=== PATIENT | female | born 1960 | race Caucasian/White ===

== ENCOUNTER 2017-01-07 18:00 | Emergency (ER) | payer BC ==
[2017-01-07] MEDS ORDERED: LORazepam 2 MG/ML SDV IVPUSH ONE (18:20)
--- NOTE | 2017-01-07 18:42 | EDM.PDOC ---
ED HPI GENERAL MEDICAL PROBLEM - General Chief Complaint: General Stated Complaint: irregular heart rate Time Seen by Provider: 01/07/17 18:19 Source of Information: Reports: Patient History Limitations: Reports: No Limitations - History of Present Illness INITIAL COMMENTS - FREE TEXT/NARRATIVE: PT STATES THIS AM SHE DEVELOPED PALPITATIONS AND ANXIETY WHICH PROGRESSIVELY WORSENED THROUGHOUT THE DAY. HAS HAD SIMILAR SYMPTOMS IN PAST AND CARDIAC WORKUP WAS NEGATIVE. CURRENTLY ON DIGOXIN FOR IRREGULAR RATE AND LEXAPRO FOR ANXIETY. DENIES SOB, CP, N/V, ABD PAIN, OR FEVER. Onset Date: 01/07/17 Duration: Hour(s): Location: Reports: Chest Quality: Reports: Other (DENIES PAIN) Severity: Mild Improves with: Reports: None Worsens with: Reports: None Associated Symptoms: Reports: No Other Symptoms - Related Data Allergies Allergy/AdvReac Type Severity Reaction Status Date / Time codeine Allergy Nausea and Verified 01/07/17 18:18 Vomiting ED ROS GENERAL - Review of Systems Review Of Systems: ROS reveals no pertinent complaints other than HPI. Constitutional: Reports: No Symptoms HEENT: Reports: No Symptoms Respiratory: Reports: No Symptoms Cardiovascular: Reports: Palpitations Endocrine: Reports: No Symptoms GI/Abdominal: Reports: No Symptoms : Reports: No Symptoms Musculoskeletal: Reports: No Symptoms Skin: Reports: No Symptoms Neurological: Reports: No Symptoms Psychiatric: Reports: Anxiety Hematologic/Lymphatic: Reports: No Symptoms Immunologic: Reports: No Symptoms ED EXAM, GENERAL - Physical Exam Exam: See Below Exam Limited By: No Limitations General Appearance: Alert, WD/WN, Anxious Eye Exam: Bilateral Eye: Normal Inspection Nose: Normal Inspection, No Blood Throat/Mouth: Normal Inspection, Normal Oropharynx, No Airway Compromise Head: Atraumatic, Normocephalic Neck: Normal Inspection, Supple Respiratory/Chest: No Respiratory Distress, Lungs Clear, Normal Breath Sounds, No Accessory Muscle Use, Chest Non-Tender Cardiovascular: Regular Rate, Rhythm, No Murmur GI/Abdominal: Normal Bowel Sounds, Soft, Non-Tender Back Exam: Normal Inspection. No: CVA Tenderness (L), CVA Tenderness (R) Extremities: Normal Inspection, No Pedal Edema Neurological: Alert, Oriented, CN II-XII Intact, Normal Cognition Psychiatric: Normal Affect, Anxious. No: Depressed Mood, Flat Affect, Tearful Skin Exam: Warm, Dry, Intact, Normal Color, No Rash EKG INTERPRETATION EKG Date: 01/07/17 Time: 19:05 Rhythm: NSR Rate (Beats/Min): 85 [place]: Normal P-Wave: Present QRS: Normal ST-T: Normal QT: Normal Course - Vital Signs Last Recorded V/S: Last Vital Signs Temp 97.6 F 01/07/17 18:10 Pulse 109 H 01/07/17 18:10 Resp 14 01/07/17 18:10 BP 156/68 H 01/07/17 18:10 Pulse Ox 98 01/07/17 18:10 - Orders/Labs/Meds Orders: Active Orders 24 hr Category Date Time Status EKG Documentation Completion [RC] ASDIRECTED Care 01/07/17 18:23 Ordered COMPREHENSIVE METABOLIC PN,CMP [CHEM] Stat Lab 01/07/17 18:20 Ordered DIGOXIN [CHEM] Stat Lab 01/07/17 18:21 Ordered EKG 12 Lead [EK] Routine Ther 01/07/17 18:21 Ordered Labs: Laboratory Tests 01/07/17 Range/Units 18:18 WBC 6.8 (5.0-10.0) 10^3/uL RBC 5.05 (3.80-5.50) 10^6/uL Hgb 14.8 (12.0-16.0) g/dL Hct 46.6 (37.0-47.0) % MCV 92.3 H (82.0-92.0) fL MCH 29.3 (27.0-31.0) pg MCHC 31.7 L (32.0-36.0) g/dL RDW 11.7 (11.5-14.5) % Plt Count 279 (150-300) 10^3/uL MPV 7.4 (7.4-10.4) fL Neut % (Auto) 63.1 (50.0-70.0) % Lymph % (Auto) 28.0 (20.0-40.0) % [place] % (Auto) 5.1 (2.0-8.0) % Eos % (Auto) 2.1 (1.0-3.0) % Baso % (Auto) 1.7 H (0.0-1.0) % Neut # (Auto) 4.4 (2.5-7.0) 10^3/uL Lymph # (Auto) 1.9 (1.0-4.0) 10^3/uL [place] # (Auto) 0.3 (0.1-0.8) 10^3/uL Eos # (Auto) 0.1 (0.1-0.3) 10^3/uL Baso # (Auto) 0.1 (0.0-0.1) 10^3/uL Meds: Medications Discontinued Medications Generic Name Dose Route Start Last Admin Trade Name Seng PRN Reason Stop Dose Admin Lorazepam 1 mg 01/07/17 18:20 01/07/17 18:32 Ativan IVPUSH 01/07/17 18:21 1 mg ONETIME ONE Administration - Re-Assessments/Exams Free Text/Narrative Re-Assessment/Exam: 01/07/17 19:09 PT AFEBRILE, NONTOXIC APPEARING, VSS, DAUGHTER AT BEDSIDE. FEELS MUCH BETTER AFTER TAKING ATIVAN. DENIES CP, SOB, OR PALPITATIONS AT THIS TIME 01/07/17 19:14 Departure - Departure Time of Disposition: 19:14 Disposition: Home, Self-Care 01 Condition: Good Clinical Impression: Anxiety, Palpitation - Discharge Information Instructions: Panic Attacks, [id number], Palpitations Additional Instructions: FOLLOW UP WITH DR PASTRANA TOMORROW. TAKE ATIVAN 0.5 MG FOR ANXIETY BREAKTHROUGH - My Orders Last 24 Hours: My Active Orders 01/07/17 18:20 COMPREHENSIVE METABOLIC PN,CMP [CHEM] Stat 01/07/17 18:21 DIGOXIN [CHEM] Stat EKG 12 Lead [EK] Routine 01/07/17 18:23 EKG Documentation Completion [RC] ASDIRECTED - Assessment/Plan Last 24 Hours: My Active Orders 01/07/17 18:20 COMPREHENSIVE METABOLIC PN,CMP [CHEM] Stat 01/07/17 18:21 DIGOXIN [CHEM] Stat EKG 12 Lead [EK] Routine 01/07/17 18:23 EKG Documentation Completion [RC] ASDIRECTED Assessment:: ANXIETY Plan: F/U AT CLINIC
[2017-01-07] MEDS ORDERED: LORazepam 0.5 MG Tab PO ONE (19:10)
[2017-01-07] MEDS ORDERED: LORazepam 0.5 MG Tab ONE (19:13)
== END 2017-01-07 19:30 | disposition home or self-care (01) ==
LOC: KA.ED 18:00
DX: F41.9 Anxiety disorder, unspecified (principal); Z88.5 Allergy status to narcotic agent
CPT/HCPCS: 36415; 80053; 80162; 85025; 99283; A9270; J2060; 93005; 96374

== ENCOUNTER 2020-12-30 10:02 | Observation (INO) | payer BC ==
[2020-12-30] MEDS ORDERED: Sodium Chloride 0.9% 10 ML Syringe FLUSH PRN (10:11)
--- NOTE | 2020-12-30 10:34 | EDM.PDOC ---
ED HPI GENERAL MEDICAL PROBLEM - General Chief Complaint: Chest Pain Stated Complaint: PANIC ATTACK/CHEST PAIN Time Seen by Provider: 12/30/20 10:15 Source of Information: Reports: Patient History Limitations: Reports: No Limitations - History of Present Illness INITIAL COMMENTS - FREE TEXT/NARRATIVE: 60 YO WF PRESENTS TO ER COMPLAINING OF PALPITATIONS AND ANXIETY WITH SUBSTERNAL CHEST PAIN WHICH PROGRESSIVELY WORSENED THROUGHOUT THE MORNING TODAY. PT HAS HAD SIMILAR SYMPTOMS IN PAST AND MULTIPLE CARDIAC WORKUPS WHICH WERE ALL NEGATIVE. PT SHAKY AND TEARFUL AND ANXIOUS ON EXAM. PT CURRENTLY TAKING DIGOXIN FOR SUSPECTED IRREGULAR HEART RATE. DENIES SOB, N/V, ABD PAIN, OR FEVER/CHILLS. PT DENIES COUGH/CONGESTION OR KNOWN COVID EXPOSURES. Onset: Today Duration: Getting Worse Location: Reports: Chest Quality: Reports: Pressure Severity: Mild Improves with: Reports: None Worsens with: Reports: None Associated Symptoms: Reports: Chest Pain Chest Pain Pain Score (Numeric/FACES): 5 - Related Data Allergies Allergy/AdvReac Type Severity Reaction Status Date / Time codeine Allergy Nausea and Verified 12/30/20 10:06 Vomiting Home Meds: Home Meds ALPRAZolam [Alprazolam ER] 0.5 mg PO BID 01/07/17 [History] ALPRAZolam [Xanax] 0.5 mg PO DAILY PRN 01/07/17 [History] Aspirin [Ecotrin] 325 mg PO DAILY 01/07/17 [History] Cholecalciferol (Vitamin D3) [Vitamin D3] 2,000 unit PO BID 01/07/17 [History] Cyanocobalamin (Vitamin B-12) [B-12] 500 mcg PO BEDTIME 01/07/17 [History] Digoxin 62.5 mcg PO DAILY 01/07/17 [History] Escitalopram [Lexapro] 5 mg PO DAILY 01/07/17 [History] Furosemide 20 mg PO DAILY PRN 01/07/17 [History] Multivitamin with Minerals [Hair, Skin & Nails] 1 each PO DAILY 01/07/17 [History] [place]-3/DHA/Epa/Fish Oil [Fish Oil 1,000 mg Softgel] 1,000 mg PO DAILY 01/07/17 [History] Omeprazole 20 mg PO BEDTIME 01/07/17 [History] Simvastatin [Zocor] 10 mg PO BEDTIME 01/07/17 [History] Acetaminophen [Tylenol Extra Strength] 500 mg PO Q6HR PRN 12/30/20 [History] Social & Family History - Tobacco Use Tobacco Use Status *Q: Never Tobacco User Second Hand Smoke Exposure: No - Caffeine Use Caffeine Use: Reports: Coffee, Soda - Recreational Drug Use Recreational Drug Use: No ED ROS GENERAL - Review of Systems Review Of Systems: See Below Constitutional: Reports: No Symptoms HEENT: Reports: No Symptoms Respiratory: Reports: No Symptoms Cardiovascular: Reports: Chest Pain, Palpitations Endocrine: Reports: No Symptoms GI/Abdominal: Reports: No Symptoms : Reports: No Symptoms Musculoskeletal: Reports: No Symptoms Skin: Reports: No Symptoms Neurological: Reports: No Symptoms Psychiatric: Reports: Anxiety Hematologic/Lymphatic: Reports: No Symptoms Immunologic: Reports: No Symptoms ED EXAM, GENERAL - Physical Exam Exam: See Below Exam Limited By: No Limitations General Appearance: Alert, WD/WN, Anxious, Mild Distress Neck: Normal Inspection, Supple, Non-Tender, Full Range of Motion Respiratory/Chest: No Respiratory Distress, Lungs Clear, Normal Breath Sounds, No Accessory Muscle Use, Chest Non-Tender Cardiovascular: Normal Peripheral Pulses, Regular Rate, Rhythm, No Edema, No Gallop, No JVD, No Murmur, No Rub, Tachycardia GI/Abdominal: Normal Bowel Sounds, Soft, Non-Tender, No Organomegaly, No Distention, No Abnormal Bruit, No Mass Back Exam: Normal Inspection, Full Range of Motion, NT Extremities: Normal Inspection, Normal Range of Motion, Non-Tender, Normal Capillary Refill, No Pedal Edema Neurological: Alert, Oriented, CN II-XII Intact, Normal Cognition, Normal Gait, No Motor/Sensory Deficits Psychiatric: Anxious Skin Exam: Warm, Dry, Intact, Normal Color, No Rash Lymphatic: No Adenopathy #1 Interpretation EKG Date: 12/30/20 Time: 10:27 Rhythm: NSR Rate (Beats/Min): 103 [place]: Normal P-Wave: Present QRS: Normal ST-T: Normal QT: Normal Comparison: No Change Course - Vital Signs Last Recorded V/S: Last Vital Signs Temp 97.6 F 12/30/20 10:22 Pulse 94 12/30/20 11:20 Resp 18 12/30/20 11:20 BP 130/73 12/30/20 11:20 Pulse Ox 93 L 12/30/20 11:20 - Orders/Labs/Meds Orders: Active Orders 24 hr Category Date Time Status Cardiac Monitoring [RC] . DIRECTED Care 12/30/20 10:11 Active Peripheral IV Care [RC] . DIRECTED Care 12/30/20 10:11 Active CORONAVIRUS COVID-19 RAPID [MOLEC] Stat Lab 12/30/20 11:29 Ordered Sodium Chloride 0.9% [Saline Flush] Med 12/30/20 10:11 Active 10 ml FLUSH Q8HR PRN Peripheral IV Insertion Adult [OM.PC] Routine Oth 12/30/20 10:11 Ordered EKG 12 Lead [EK] Stat Ther 12/30/20 10:09 Ordered Medication Orders Sodium Chloride (Sodium Chloride 0.9% 10 Ml Syringe) 10 ml FLUSH Q8HR PRN PRN Reason: keep vein open Labs: Laboratory Tests 12/30/20 12/30/20 Range/Units 10:22 10:22 WBC 5.92 (5.00-10.00) 10^3/uL RBC 4.77 (3.80-5.50) 10^6/uL Hgb 14.4 (12.0-16.0) g/dL Hct 42.2 (37.0-47.0) % MCV 88.5 (82.0-92.0) fL MCH 30.2 (27.0-31.0) pg MCHC 34.1 (32.0-36.0) g/dL RDW 11.9 (11.5-14.5) % Plt Count 258 (150-400) 10^3/uL MPV 9.0 (7.4-10.4) fL Immature Gran % (Auto) 0.2 (0.0-5.0) % Neut % (Auto) 41.6 L (50.0-70.0) % Lymph % (Auto) 50.2 H (20.0-40.0) % [place] % (Auto) 5.6 (2.0-8.0) % Eos % (Auto) 1.9 (1.0-3.0) % Baso % (Auto) 0.5 (0.0-1.0) % Neut # (Auto) 2.47 L (2.50-7.00) 10^3/uL Lymph # (Auto) 2.97 (1.00-4.00) 10^3/uL [place] # (Auto) 0.33 (0.10-0.80) 10^3/uL Eos # (Auto) 0.11 (0.10-0.30) 10^3/uL Baso # (Auto) 0.03 (0.00-0.10) 10^3/uL Immature Gran # (Auto) 0.01 (0.00-0.50) 10^3/uL Sodium 143 (136-145) mmol/L Potassium 3.8 (3.5-5.1) mmol/L Chloride 104 (98-107) mmol/L Carbon Dioxide 20.4 L (21.0-32.0) mmol/L Anion Gap 22.4 H (5-15) mmol/L BUN 16 (7-18) mg/dL Creatinine 0.87 (0.51-1.17) mg/dL Est Cr Clr Drug Dosing 60.33 mL/min Estimated GFR (MDRD) > 60 mL/min Glucose 149 H (70-140) mg/dL Calcium 9.6 (8.7-10.3) mg/dL Troponin I High Sens 4.500 (0-51.000) pg/mL Meds: Medications Generic Name Dose Route Start Last Admin Trade Name Freq PRN Reason Stop Dose Admin Sodium Chloride 10 ml 12/30/20 10:11 Sodium Chloride 0.9% 10 Ml Syringe FLUSH Q8HR PRN keep vein open Discontinued Medications Generic Name Dose Route Start Last Admin Trade Name Freq PRN Reason Stop Dose Admin Aspirin 324 mg 12/30/20 11:36 Aspirin 81 Mg Tab.Chew PO 12/30/20 11:37 ONETIME ONE Lorazepam 1 mg 12/30/20 10:46 12/30/20 10:50 Lorazepam 2 Mg/Ml Sdv IVPUSH 12/30/20 10:47 1 mg ONETIME ONE Administration Nitroglycerin 1 gm 12/30/20 11:15 12/30/20 11:20 Nitroglycerin 2% Oint 1 Gm Ud Packet TOP 12/30/20 11:16 1 gm ONETIME ONE Administration - Radiology Interpretation Free Text/Narrative:: CXR- NO ACUTE PROCESS Departure - Departure Time of Disposition: 12:03 Disposition: Refer to Observation Condition: Fair Clinical Impression: Anxiety, Palpitation Chest pain Qualifiers: Chest pain type: unspecified Qualified Code(s): R07.9 - Chest pain, unspecified Referrals: Sally Hernandez MD [Primary Care Provider] - Forms: ED Department Discharge Sepsis Event Note (ED) - Evaluation Sepsis Screening Result: No Definite Risk - Focused Exam Vital Signs: Vital Signs Temp Pulse Resp BP Pulse Ox 12/30/20 11:20 94 18 130/73 93 L 12/30/20 10:22 97.6 F 113 H 12 165/84 H 99 - My Orders Last 24 Hours: My Active Orders 12/30/20 10:09 EKG 12 Lead [EK] Stat 12/30/20 10:11 Cardiac Monitoring [RC] . DIRECTED Peripheral IV Care [RC] . DIRECTED Sodium Chloride 0.9% [Saline Flush] 10 ml FLUSH Q8HR PRN Peripheral IV Insertion Adult [OM.PC] Routine 12/30/20 11:29 CORONAVIRUS COVID-19 RAPID [MOLEC] Stat - Assessment/Plan Admission H&P: Please use this note as an admission H&P Last 24 Hours: My Active Orders 12/30/20 10:09 EKG 12 Lead [EK] Stat 12/30/20 10:11 Cardiac Monitoring [RC] . DIRECTED Peripheral IV Care [RC] . DIRECTED Sodium Chloride 0.9% [Saline Flush] 10 ml FLUSH Q8HR PRN Peripheral IV Insertion Adult [OM.PC] Routine 12/30/20 11:29 CORONAVIRUS COVID-19 RAPID [MOLEC] Stat Assessment:: 1. CHEST PAIN 2. PALPITATIONS 3. ANXIETY Plan: 1. ADMIT FOR OBSERVATION AND CARDIAC MONITORING- DR PASTRANA ACCEPTING @ 1357 2. ASA/NITRO 3. SUPPORTIVE CARE 4. ATIVAN 1MG IV Q6 PRN ANXIETY
[2020-12-30] MEDS ORDERED: LORazepam 2 MG/ML SDV IVPUSH ONE (10:46)
--- NOTE | 2020-12-30 10:56 | CR ---
[id number] RAD/RAD Chest PA And Lateral EXAM: RAD Chest PA And Lateral INDICATION: Palpitations and anxiety. COMPARISON: None. DISCUSSION: Hypoinflation with central vascular crowding and basilar atelectasis. The volume loss could obscure other findings. No definite infiltrates. Normal heart size. No effusions. Mild pectus excavatum. IMPRESSION: 1. Low lung volumes. Ham Poon MD 12/30/20 1055 Thank you for allowing us to participate in the care of your patient.
[2020-12-30] MEDS ORDERED: Nitroglycerin 2% Oint 1 GM UD Packet TOP ONE (11:15)
[2020-12-30] MEDS ORDERED: Aspirin 81 MG Tab.Chew PO ONE (11:36)
[2020-12-30 11:40] LABS: ANION GAP 22.4 mmol/L (5-15); CHLORIDE,CL 104 mmol/L (98-107); SODIUM,NA 143 mmol/L (136-145)
[2020-12-30] MEDS ORDERED: LORazepam 2 MG/ML SDV IVPUSH PRN (12:10)
[2020-12-30] MEDS ORDERED: Furosemide 20 MG Tab PO PRN (12:12)
[2020-12-30] MEDS ORDERED: Acetaminophen 500 MG Tab PO PRN (12:12)
[2020-12-30] MEDS ORDERED: Alum Hydrox/Mag Hydrox/Simeth 30 ML, Lidocaine 2% 15 ML PO ONE ×2 (12:49)
[2020-12-30] MEDS ORDERED: ALPRAZolam 0.25 MG Tab PO PRN (14:14)
[2020-12-30] MEDS: Nitroglycerin 2% Oint 1 GM UD Packet TOP SCH ×2 (15:08→19:01)
[2020-12-30] MEDS: Cholecalciferol (Vitamin D3) 25 MCG Tab PO SCH (20:00)
[2020-12-30] MEDS ORDERED: Cyanocobalamin (Vitamin B12) 500 MCG Tab PO SCH (21:00)
[2020-12-30] MEDS ORDERED: Pantoprazole 40 MG Tab.CR PO SCH (21:00)
[2020-12-30] MEDS ORDERED: Simvastatin 10 MG Tab PO SCH (21:00)
[2020-12-31] MEDS: Cholecalciferol (Vitamin D3) 25 MCG Tab PO SCH (08:18)
[2020-12-31] MEDS ORDERED: Escitalopram 10 MG Tab PO SCH (09:00)
[2020-12-31] MEDS ORDERED: Digoxin 125 MCG Tab PO SCH (09:00)
[2020-12-31] MEDS ORDERED: Multivitamins with Minerals/Iron/Folic Acid/Lycopene Tab PO SCH (09:00)
[2020-12-31] MEDS ORDERED: Fish Oil/Omega-3 Fatty Acids 1 Gm Cap PO SCH (09:00)
[2020-12-31] MEDS ORDERED: Aspirin 325 MG Tab.EC PO SCH (09:00)
--- NOTE | 2020-12-31 09:38 | PCM.DCSUM1 ---
Discharge Summary - Hospital Course Free Text/Narrative:: Admission Date: 12/30/2020 Discharge Date: 12/31/2020 Disposition: Home, Self-Care Admission Diagnoses: Chest pain, rule out cardiac etiology Anxiety Attack Discharge Diagnoses: Chest pain, negative troponin x 4, negative EKG Anxiety Attack, still feeling anxious - Increase escitalopram from 10 mg PO daily to 15 mg PO daily (1-1/2 tabs), new script sent through via clinic chart to [facility] - Continue Alprazolam ER 0.5 MG PO BID - Continue Aprazolam 0.5 gm PO daily PRN (she uses 1/4 - 1/2 tab) Secondary Diagnoses: Acid Reflux - Omeprazole 20 mg PO daily HLD - Simvastatin 10 mg PO qhs LE Edema - Furosemide 20 mg PO daily PRN PAC/PVC - Digoxin 125 mcg, 1/2 tab PO daily Vit D deficiency - Vitamin D 2,000 units PO BID Med Changes - Increase escitalopram from 10 mg PO daily to 15 mg PO daily CODE STATUS: Full Code Hospital Course: Meenu is a pleasant 60 yo F with a hx of anxiety disorder and panic attack who presented to the ER on 12/30 with palpitations and substernal chest pressure. This felt different than her typical panic attacks. She had a normal EKG and troponin was negative x 4. She did have nitro paste and that helped but gave her a headache and so it was removed. She has a great deal of stress currently. Her mom who is 81 is on hospice with metastatic ovarian cancer and she had a family member who just rather unexpectedly. She is very emotional when talking about these events and understandably so. She would be interested in increasing her escitalopram from 10 mg PO daily to 15 mg PO daily and continuing on the alprazolam. She states when she took a full 1/2 tablet (0.25 mg) she felt "like I was high and I didn't like that". She is not interested in increasing the dose or frequently of that medication. She will be discharged to home on escitalopram 15 mg PO daily with follow-up in the clinic in 7-10 days. Modified Collier Scale: No Signif.Disability Despite Sympt.Able to Carry Out Usual Act./Duties Modified Yoni Scale Score: 1 - Discharge Data Discharge Date: 12/31/20 Discharge Disposition: Home, Self-Care 01 Condition: Good - Referral to Home Health Primary Care Physician: Sally Hernandez MD - Patient Instructions Diet: Regular Diet as Tolerated Activity: Rest and Relax Today - Discharge Plan *PRESCRIPTION DRUG MONITORING PROGRAM REVIEWED*: No *COPY OF PRESCRIPTION DRUG MONITORING REPORT IN PATIENT FRANCES: No Home Medications: Home Meds ALPRAZolam [Alprazolam ER] 0.5 mg PO BID 01/07/17 [History] ALPRAZolam [Xanax] 0.5 mg PO DAILY PRN 01/07/17 [History] Aspirin [Ecotrin EC] 325 mg PO DAILY 01/07/17 [History] Cholecalciferol (Vitamin D3) [Vitamin D3] 2,000 unit PO BID 01/07/17 [History] Cyanocobalamin (Vitamin B-12) [B-12] 500 mcg PO BEDTIME 01/07/17 [History] Digoxin 62.5 mcg PO DAILY 01/07/17 [History] Furosemide 20 mg PO DAILY PRN 01/07/17 [History] Multivitamin with Minerals [Hair, Skin and Nails] 1 each PO DAILY 01/07/17 [History] [place]-3/DHA/Epa/Fish Oil [Fish Oil 1,000 mg Softgel] 1,000 mg PO DAILY 01/07/17 [History] Omeprazole 20 mg PO BEDTIME 01/07/17 [History] Simvastatin [Zocor] 10 mg PO BEDTIME 01/07/17 [History] Acetaminophen [Tylenol Extra Strength] 500 mg PO Q6HR PRN 12/30/20 [History] Forms: ED Department Discharge Referrals: Sally Hernandez MD [Primary Care Provider] - - Discharge Summary/Plan Comment DC Time >30 min.: No Total # of Minutes for Discharge Time: 25 - General Info Date of Service: 12/31/20 - Patient Data Vitals - Most Recent: Last Vital Signs Temp 97.4 F 12/31/20 07:00 Pulse 93 12/31/20 09:32 Resp 16 12/31/20 07:00 BP 114/42 L 12/31/20 07:00 Pulse Ox 94 L 12/31/20 07:00 Weight - Most Recent: 180 lb I&O - Last 24 hours: Intake & Output 12/30/20 12/31/20 12/31/20 22:59 06:59 14:59 Intake Total 400 200 Balance 400 200 Lab Results - Last 24 hrs: Laboratory Results - last 24 hr 12/30/20 12/30/20 12/30/20 Range/Units 10:22 10:22 11:29 WBC 5.92 (5.00-10.00) 10^3/uL RBC 4.77 (3.80-5.50) 10^6/uL Hgb 14.4 (12.0-16.0) g/dL Hct 42.2 (37.0-47.0) % MCV 88.5 (82.0-92.0) fL MCH 30.2 (27.0-31.0) pg MCHC 34.1 (32.0-36.0) g/dL RDW 11.9 (11.5-14.5) % Plt Count 258 (150-400) 10^3/uL MPV 9.0 (7.4-10.4) fL Immature Gran % (Auto) 0.2 (0.0-5.0) % Neut % (Auto) 41.6 L (50.0-70.0) % Lymph % (Auto) 50.2 H (20.0-40.0) % [place] % (Auto) 5.6 (2.0-8.0) % Eos % (Auto) 1.9 (1.0-3.0) % Baso % (Auto) 0.5 (0.0-1.0) % Neut # (Auto) 2.47 L (2.50-7.00) 10^3/uL Lymph # (Auto) 2.97 (1.00-4.00) 10^3/uL [place] # (Auto) 0.33 (0.10-0.80) 10^3/uL Eos # (Auto) 0.11 (0.10-0.30) 10^3/uL Baso # (Auto) 0.03 (0.00-0.10) 10^3/uL Immature Gran # (Auto) 0.01 (0.00-0.50) 10^3/uL Sodium 143 (136-145) mmol/L Potassium 3.8 (3.5-5.1) mmol/L Chloride 104 (98-107) mmol/L Carbon Dioxide 20.4 L (21.0-32.0) mmol/L Anion Gap 22.4 H (5-15) mmol/L BUN 16 (7-18) mg/dL Creatinine 0.87 (0.51-1.17) mg/dL Est Cr Clr Drug Dosing 60.33 mL/min Estimated GFR (MDRD) > 60 mL/min Glucose 149 H (70-140) mg/dL Calcium 9.6 (8.7-10.3) mg/dL Magnesium (1.8-2.4) mg/dL Troponin I High Sens 4.500 (0-51.000) pg/mL SARS CoV-2 RNA Rapid DESIREE Negative (NEGATIVE) 12/30/20 12/30/20 12/31/20 Range/Units 14:05 18:00 07:35 WBC (5.00-10.00) 10^3/uL RBC (3.80-5.50) 10^6/uL Hgb (12.0-16.0) g/dL Hct (37.0-47.0) % MCV (82.0-92.0) fL MCH (27.0-31.0) pg MCHC (32.0-36.0) g/dL RDW (11.5-14.5) % Plt Count (150-400) 10^3/uL MPV (7.4-10.4) fL Immature Gran % (Auto) (0.0-5.0) % Neut % (Auto) (50.0-70.0) % Lymph % (Auto) (20.0-40.0) % [place] % (Auto) (2.0-8.0) % Eos % (Auto) (1.0-3.0) % Baso % (Auto) (0.0-1.0) % Neut # (Auto) (2.50-7.00) 10^3/uL Lymph # (Auto) (1.00-4.00) 10^3/uL [place] # (Auto) (0.10-0.80) 10^3/uL Eos # (Auto) (0.10-0.30) 10^3/uL Baso # (Auto) (0.00-0.10) 10^3/uL Immature Gran # (Auto) (0.00-0.50) 10^3/uL Sodium (136-145) mmol/L Potassium (3.5-5.1) mmol/L Chloride (98-107) mmol/L Carbon Dioxide (21.0-32.0) mmol/L Anion Gap (5-15) mmol/L BUN (7-18) mg/dL Creatinine (0.51-1.17) mg/dL Est Cr Clr Drug Dosing mL/min Estimated GFR (MDRD) mL/min Glucose (70-140) mg/dL Calcium (8.7-10.3) mg/dL Magnesium 2.1 (1.8-2.4) mg/dL Troponin I High Sens 6.900 6.600 6.000 (0-51.000) pg/mL SARS CoV-2 RNA Rapid DESIREE (NEGATIVE) Med Orders - Current: Current Medications Acetaminophen (Acetaminophen 500 Mg Tab) 500 mg PO Q6HR PRN PRN Reason: Pain Last Admin: 12/30/20 19:58 Dose: 500 mg Documented by: Alprazolam (Alprazolam 0.25 Mg Tab) 0.125 mg PO Q8H PRN PRN Reason: Anxiety Last Admin: 12/31/20 08:36 Dose: 0.125 mg Documented by: Aspirin (Aspirin 325 Mg Tab.Ec) 325 mg PO DAILY [facility] Last Admin: 12/31/20 08:17 Dose: 325 mg Documented by: Cholecalciferol (Cholecalciferol (Vitamin D3) 25 Mcg Tab) 50 mcg PO BID [facility] Last Admin: 12/31/20 08:18 Dose: 50 mcg Documented by: Cyanocobalamin (Cyanocobalamin (Vitamin B12) 500 Mcg Tab) 500 mcg PO BEDTIME [facility] Last Admin: 12/30/20 20:00 Dose: 500 mcg Documented by: Digoxin (Digoxin 125 Mcg Tab) 62.5 mcg PO DAILY [facility] Last Admin: 12/31/20 09:32 Dose: 62.5 mcg Documented by: Escitalopram Oxalate (Escitalopram 10 Mg Tab) 5 mg PO DAILY [facility] Last Admin: 12/31/20 08:17 Dose: 5 mg Documented by: Fish Oil (Fish Oil/[place]-3 Fatty Acids 1 Gm Cap) 1 gm PO DAILY [facility] Last Admin: 12/31/20 08:18 Dose: 1 gm Documented by: Furosemide (Furosemide 20 Mg Tab) 20 mg PO DAILY PRN PRN Reason: Edema Lorazepam (Lorazepam 2 Mg/Ml Sdv) 1 mg IVPUSH Q4H PRN PRN Reason: Anxiety Last Admin: 12/31/20 06:45 Dose: 1 mg Documented by: Multivitamins/Minerals (Multivitamins With Minerals/Iron/Folic Acid/Lycopene Tab) 1 tab PO DAILY [facility] Last Admin: 12/31/20 08:17 Dose: 1 tab Documented by: Pantoprazole Sodium (Pantoprazole 40 Mg Tab.Cr) 40 mg PO BEDTIME [facility] Last Admin: 12/30/20 19:59 Dose: 40 mg Documented by: Simvastatin (Simvastatin 10 Mg Tab) 10 mg PO BEDTIME [facility] Last Admin: 12/30/20 20:00 Dose: 10 mg Documented by: Discontinued Medications Aspirin (Aspirin 81 Mg Tab.Chew) 324 mg PO ONETIME ONE Stop: 12/30/20 11:37 Last Admin: 12/30/20 15:09 Dose: Not Given Documented by: Al Hydroxide/Mg Hydroxide 30 (ml/ Lidocaine HCl 15 ml) 0 ml PO ONETIME ONE Stop: 12/30/20 12:50 Last Admin: 12/30/20 13:29 Dose: 45 ml Documented by: Lorazepam (Lorazepam 2 Mg/Ml Sdv) 1 mg IVPUSH ONETIME ONE Stop: 12/30/20 10:47 Last Admin: 12/30/20 10:50 Dose: 1 mg Documented by: Nitroglycerin (Nitroglycerin 2% Oint 1 Gm Ud Packet) 1 gm TOP ONETIME ONE Stop: 12/30/20 11:16 Last Admin: 12/30/20 11:20 Dose: 1 gm Documented by: Nitroglycerin (Nitroglycerin 2% Oint 1 Gm Ud Packet) 1 gm TOP Q6H [facility] Last Admin: 12/30/20 19:01 Dose: Not Given Documented by: Sodium Chloride (Sodium Chloride 0.9% 10 Ml Syringe) 10 ml FLUSH Q8HR PRN PRN Reason: keep vein open - Exam General: Reports: Alert, Oriented, Cooperative, Other (Tearful) Lungs: Reports: Clear to Auscultation, Normal Respiratory Effort Cardiovascular: Reports: Regular Rate, Regular Rhythm, No Murmurs
== END 2020-12-31 12:31 | disposition home or self-care (01) ==
LOC: KA.ED 10:02 → KA.MS 12:05
PROVIDERS: ADMIT Physician Assistant Medical; ATTEND Internal Medicine
DX: R07.2 Precordial pain (principal); F41.9 Anxiety disorder, unspecified; R00.2 Palpitations; Z88.5 Allergy status to narcotic agent; Z79.899 Other long term (current) drug therapy; Z79.82 Long term (current) use of aspirin; Z20.822 Contact with and (suspected) exposure to COVID-19
CPT/HCPCS: 36415; 71046; 80048; 83735; 84484; 85025; 93005; 93010; 96374; 96376; 99220; 99285-25; A9270-GY; G0378; J2060; U0002

== ENCOUNTER 2021-02-04 08:00 | Day surgery (SDC) | payer BC ==
[~2021-02-04 08:00] MED LIST: Lactated Ringers 1,000 ML IV SCH; Sodium Chloride 0.9% 10 ML Syringe FLUSH PRN
[2021-02-04] MEDS ORDERED: Midazolam 1 MG/ML 2 ML SDV ONE (09:03)
[2021-02-04] MEDS ORDERED: Propofol 200 MG/20 ML SDV ONE (09:03)
--- NOTE | 2021-02-04 09:11 | PCM.PN ---
- General Info Date of Service: 02/04/21 - Review of Systems Systems Review Comment:: 60-year-old female here for colonoscopy. It is been more than 10 years since her last colon exam. She also notes a change in bowel habits and some hematochezia. She is medically stable to proceed today. Her recent history and physical is reviewed and no significant changes are noted. I have discussed the proposed colonoscopy with the patient. Risks such as but not limited to bleeding and GI injury reviewed. She agrees to proceed. - Patient Data Vitals - Most Recent: Last Vital Signs Temp 97 F 02/04/21 08:35 Pulse 95 02/04/21 08:35 Resp 20 02/04/21 08:35 BP 148/67 H 02/04/21 08:35 Pulse Ox 97 02/04/21 08:35 Weight - Most Recent: 81.647 kg Med Orders - Current: Current Medications Lactated Ringer's (Ringers, Lactated) 1,000 mls @ 50 mls/hr IV ASDIRECTED [facility] Last Admin: 02/04/21 08:37 Dose: 50 mls/hr Documented by: Sodium Chloride (Sodium Chloride 0.9% 10 Ml Syringe) 10 ml FLUSH Q8HR PRN PRN Reason: keep vein open Discontinued Medications Midazolam HCl (Midazolam 1 Mg/Ml 2 Ml Sdv) Confirm Administered Dose 2 mg .ROUTE .STK-MED ONE Stop: 02/04/21 09:04 Propofol (Propofol 200 Mg/20 Ml Sdv) Confirm Administered Dose 400 mg .ROUTE .STK-MED ONE Stop: 02/04/21 09:04 Sepsis Event Note - Focused Exam Vital Signs: Vital Signs Temp Pulse Resp BP Pulse Ox 02/04/21 08:35 97 F 95 20 148/67 H 97 - Problem List Review Problem List Initiated/Reviewed/Updated: Yes - My Orders Last 24 Hours: My Active Orders 02/03/21 15:53 Resuscitation Status Routine 02/04/21 08:00 Peripheral IV Care [RC] . DIRECTED Nothing Per Oral Diet [DIET] Lactated Ringers [Ringers, Lactated] 1,000 ml IV ASDIRECTED Sodium Chloride 0.9% [Saline Flush] 10 ml FLUSH Q8HR PRN Peripheral IV Insertion Adult [OM.PC] Routine 02/04/21 08:30 Patient to Empty Bladder [RC] ASDIRECTED 02/04/21 09:00 Verify Patient Consent Obtain [RC] ASDIRECTED - Assessment Assessment:: Change in bowel habits Hematochezia - Plan Plan:: Colonoscopy
--- NOTE | 2021-02-04 09:45 | PCM.OPNOTE ---
- General Post-Op/Procedure Note Date of Surgery/Procedure: 02/04/21 Operative Procedure(s): Colonoscopy with polypectomy Findings: Small Sigmoid Colon Polyp Moderate Sigmoid Diverticulosis Moderate sized hemorrhoids Pre Op Diagnosis: Change in bowel habits. Hematochezia Post-Op Diagnosis: Colon Polyp. Sigmoid Diverticulosis. hemorrhoids Anesthesia Technique: MAC Primary Surgeon: Sergey Mcghee Pathology: Colon Polyp EBL in mLs: 0 Complications: None Condition: Good
--- NOTE | 2021-02-04 11:27 | OR ---
DATE OF SURGERY: 02/04/2021 SURGEON: Sergey Mcghee MD PREOPERATIVE DIAGNOSIS: Change in bowel habits and hematochezia. POSTOPERATIVE DIAGNOSIS: Sigmoid colon polyp, sigmoid diverticulosis, hemorrhoids. OPERATION PERFORMED: Colonoscopy with polypectomy. INDICATIONS FOR SURGERY: This 60-year-old female is referred for colonoscopy because of symptoms of hematochezia and change in bowel habits. It has been more than 10 years since her last colon exam. FINDINGS: A single polyp was noted on today's exam, it is in the sigmoid colon at 18 cm from the anal verge. It is a 5 mm sessile polyp. The patient also has a moderate degree of sigmoid diverticulosis which although having some spasm, does not appear to be acutely inflamed or otherwise complicated. There are also moderate-sized internal and external hemorrhoids without visible active bleeding at this time. The remainder of the colon appears normal. DESCRIPTION OF PROCEDURE: The patient was taken to the operating room. She was given intravenous sedation, and with her in the left lateral decubitus position, digital rectal exam was performed showing no rectal masses. The Olympus colonoscope was inserted into the rectum. Retroflexed examination of the rectal canal is performed. The scope was advanced to the sigmoid colon region where the above-described polyp was identified. This was completely removed with a cold biopsy forceps. The scope was then further advanced throughout the entire length of the colon until the cecum was reached. Cecal acquisition was confirmed by noting the normal internal cecal anatomy including the appendiceal orifice and the ileocecal valve. The light was also noted to transilluminate the abdominal wall in the right lower quadrant. After examining the cecum, the scope was slowly withdrawn sequentially re-examining the colonic segment until the entire colon and rectum had been fully examined. The scope was removed and the patient was taken from the operating room in satisfactory condition. ESTIMATED BLOOD LOSS: 0. COMPLICATIONS: None. PROGNOSIS: Good. /[id number]/MODL
== END 2021-02-04 10:36 | disposition home or self-care (01) ==
LOC: KA.SDS 08:00
PROVIDERS: ATTEND Surgery
DX: K57.30 Diverticulosis of large intestine without perforation or abscess without bleeding (principal); K63.5 Polyp of colon; K64.4 Residual hemorrhoidal skin tags; K64.8 Other hemorrhoids
CPT/HCPCS: 00812; J2250; J2704; J7120

== ENCOUNTER 2024-02-29 08:10 | Day surgery (SDC) | payer MEDICARE, BC ==
[~2024-02-29 08:10] MED LIST changes: -Lactated Ringers 1,000 ML IV SCH
[2024-02-29] MEDS ORDERED: Propofol 200 MG/20 ML SDV ONE (08:35)
[2024-02-29] MEDS ORDERED: Midazolam 1 MG/ML 2 ML SDV ONE (08:35)
[2024-02-29] MEDS ORDERED: Glycopyrrolate 0.2 MG/ML SDV ONE (08:36)
[2024-02-29] MEDS ORDERED: Lidocaine 2% 100 MG/5 ML Syringe ONE (08:36)
[2024-02-29] MEDS: Lactated Ringers 1,000 ML IV SCH (08:45)
[2024-02-29 09:49] VITALS: PULSE 86
[2024-02-29 10:24] VITALS: BP 125/50
== END 2024-02-29 10:55 | disposition home or self-care (01) ==
LOC: KA.SDS 08:10
PROVIDERS: ATTEND Surgery
DX: K29.50 Unspecified chronic gastritis without bleeding (principal); K21.9 Gastro-esophageal reflux disease without esophagitis; F41.9 Anxiety disorder, unspecified; G47.30 Sleep apnea, unspecified; Z79.899 Other long term (current) drug therapy; Z88.5 Allergy status to narcotic agent
CPT/HCPCS: 00731; 87338; J1596; J2250; J2704; J3490; J7120

== ENCOUNTER 2024-12-10 09:15 | Emergency (ER) | payer MEDICARE, BC ==
[2024-12-10] MEDS ORDERED: Sodium Chloride 0.9% 10 ML Syringe FLUSH PRN (09:28)
[2024-12-10] MEDS: LORazepam 2 MG/ML SDV IVPUSH ONE (09:31)
[2024-12-10 09:38] LABS: BASOPHILS ABSOLUTE AUTO 0.04 10^3/uL (0.00-0.10); BASOPHILS PERCENT AUTO 0.6 % (0.0-1.0); EOSINOPHILS ABSOLUTE AUTO 0.13 10^3/uL (0.10-0.30); EOSINOPHILS PERCENT AUTO 1.9 % (1.0-3.0); IMMATURE GRAN ABSOLUTE AUTO 0.03 10^3/uL (0.00-0.04); IMMATURE GRAN PERCENT AUTO 0.4 % (0.0-0.4); LYMPHOCYTES ABSOLUTE AUTO 3.21 10^3/uL (1.00-4.00); LYMPHOCYTES PERCENT AUTO 47.3 % (20.0-40.0); MEAN PLATELET VOLUME 9.1 fL (7.4-10.4); MONOCYTES ABSOLUTE AUTO 0.47 10^3/uL (0.10-0.80); MONOCYTES PERCENT AUTO 6.9 % (2.0-8.0); NEUTROPHILS ABSOLUTE AUTO 2.90 10^3/uL (2.50-7.00); NEUTROPHILS PERCENT AUTO 42.9 % (50.0-70.0); PLATELET COUNT,PLT 250 10^3/uL (150-400); RED BLOOD CELL COUNT 5.11 10^6/uL (3.80-5.50); RED CELL DISTRIBUTION WIDTH 12.2 % (11.5-14.5); WHITE BLOOD CELL COUNT,WBC 6.78 10^3/uL (5.00-10.00)
[2024-12-10 09:58] LABS: ALANINE AMINOTRANSFERASE,ALT 38 U/L (14-63); ASPARTATE AMNIOTRANSFERASE,AST 30 U/L (15-37); BILIRUBIN TOTAL 0.4 mg/dL (0.2-1.0); BLOOD UREA NITROGEN,BUN 11 mg/dL (7-18); CARBON DIOXIDE,CO2 28.9 mmol/L (21.0-32.0); CHLORIDE,CL 103 mmol/L (98-107); CREATININE 0.82 mg/dL (0.51-1.17); EST CRCL DRUG DOSING (CG) 58.28 mL/min; ESTIMATED GFR 79 mL/min (>=60); GLUCOSE RANDOM 100 mg/dL (70-140); POTASSIUM,K 4.3 mmol/L (3.5-5.1); PROTEIN TOTAL,TP 8.1 g/dL (6.4-8.2); SODIUM,NA 142 mmol/L (136-145)
[2024-12-10] MEDS: Iopamidol 755 Mg/ML 100 ML Bottle IV ONE (10:36)
== END 2024-12-10 11:37 | disposition home or self-care (01) ==
LOC: KA.ED 09:15
DX: R07.89 Other chest pain (principal); F41.0 Panic disorder [episodic paroxysmal anxiety]; E78.00 Pure hypercholesterolemia, unspecified; K21.9 Gastro-esophageal reflux disease without esophagitis; E66.9 Obesity, unspecified; M19.90 Unspecified osteoarthritis, unspecified site; Z68.36 Body mass index [BMI] 36.0-36.9, adult; Z90.49 Acquired absence of other specified parts of digestive tract; Z90.710 Acquired absence of both cervix and uterus; Z88.5 Allergy status to narcotic agent; Z88.8 Allergy status to other drugs, medicaments and biological substances; Z79.82 Long term (current) use of aspirin; Z79.899 Other long term (current) drug therapy
CPT/HCPCS: 36415; 71045; 71275; 80053; 84484; 85025; 85379; 93010; 96374; 99284; 99285-25; J2060; Q9967